=== PATIENT | female | born 1980 | race Caucasian/White ===

== ENCOUNTER 2016-06-05 17:45 | Emergency (ER) | payer OTHER ==
[~2016-06-05] VITALS: Ht 182.9 cm; Wt 98.7 kg
[~2016-06-05 17:45] MED LIST: ALBUAER INH; BISM262S7; IMD/2 PO; MOML PO; ONDA4TAB10 SL
[2016-06-05 17:47] VITALS: TEMP 36.9; Ht 182.9 cm; Wt 98.7 kg
[2016-06-05] MEDS ORDERED: MoRPHine SULFATE 4 MG/ML 1 ML CARP\\VIAL IV STA (18:00)
[2016-06-05] MEDS ORDERED: SODIUM CHLORIDE 0.9% 1000ML 1,000 ML IV STA (18:00)
[2016-06-05] MEDS ORDERED: ONDANSETRON INJ 2 MG/ML 2 ML VIAL IV STA (18:00)
[2016-06-05 18:13] LABS: URINE APPEARANCE CLOUDY (CLEAR); URINE BILIRUBIN NEG (NEG); URINE COLOR DK YELLOW; URINE EPITHELIAL CELL AUTO >30 /lpf (0-5); URINE NITRITE NEG (NEG); URINE SPECIFIC GRAVITY 1.042 (1.000-1.030); UROBILINOGEN NEG (NEG)
[2016-06-05 18:21] LABS: MANUAL MICROSCOPIC REQUIRED? NO; REVIEW REQ? NO
[2016-06-05 18:29] LABS: HEMATOCRIT 44.2 % (37-47); MEAN CORPUSCULAR HEMOGLOBIN 29.5 pg (25-34); MEAN CORPUSCULAR HGB CONC 33.9 g/dl (32-36); MEAN PLATELET VOLUME 10.9 fL (7.4-10.4); PLATELET COUNT 239 K/uL (130-400); RED BLOOD COUNT 5.08 M/uL (4.2-5.4); WHITE BLOOD COUNT 16.34 K/uL (4.8-10.8)
[2016-06-05 18:56] LABS: ALKALINE PHOSPHATASE 72 U/L (45-117); ALT/SGPT 16 U/L (12-78); BLOOD UREA NITROGEN 18 mg/dl (7-18); BUN/CREATININE RATIO 21.2 (10-20); CALCIUM 8.7 mg/dl (8.5-10.1); CHLORIDE 107 mmol/L (98-107); CREATININE 0.83 mg/dl (0.60-1.20)
[2016-06-05 18:57] LABS: CARBON DIOXIDE 23 mmol/L (21-32); GLUCOSE 80 mg/dl (70-99)
[2016-06-05 19:06] LABS: POTASSIUM 3.9 mmol/L (3.5-5.1); SODIUM 142 mmol/L (136-145)
[2016-06-05 19:17] LABS: AST/SGOT 10 U/L (15-37)
[2016-06-05 19:25] LABS: BASO % 0.4 %; BASO ABS # 0.06 K/uL (0-0.2); COMPLETE YES; EOS % 4.2 %; IG% 0.2 %; LYMPH % 36.3 %; LYMPH ABS # 5.93 K/uL (1.2-3.4); MONO % 6.4 %; NEUT % 52.5 %
--- NOTE | 2016-06-05 19:32 | DIAGNOSTIC IMAGING REPORT ---
CT SCAN OF THE ABDOMEN AND PELVIS WITHOUT CONTRAST CLINICAL HISTORY: Left lower quadrant pain and hematuria COMPARISON STUDY: 07/16/2013 TECHNIQUE: CT scan of the abdomen and pelvis was performed from the lung bases to the proximal femurs. Images are reviewed in the axial, sagittal, and coronal planes. IV contrast was not administered for this examination. CT DOSE: 1681.41 mGy.cm FINDINGS: Lower chest: The heart is normal in size and configuration, without pericardial effusion. The lung bases and pleural spaces are clear. Liver: The unenhanced liver is normal in size, contour, and attenuation. There is no intrahepatic biliary ductal dilatation. Gallbladder: Unremarkable. Spleen: Normal in size and attenuation. Pancreas: Unremarkable. Adrenal glands: Unremarkable. Kidneys: No renal, ureteral, or bladder calculi are visualized. Bowel: There are no transition zones indicate bowel obstruction. There is no acute diverticulitis. The appendix appears normal. Peritoneum: There is no intraperitoneal free air or abdominal ascites. Vasculature: The abdominal aorta is normal in course and caliber. Adenopathy: None. Pelvic viscera: There is an indwelling IUD. No abnormal pelvic masses are visualized. Skeletal structures: No destructive osseous lesions are seen. IMPRESSION: 1. No renal, ureteral, or bladder calculi identified 2. No evidence of bowel obstruction. No evidence of free air 3. Normal appendix 4. No evidence of acute diverticulitis. Electronically signed by: Dru Hood M.D. 06/05/2016 7:30 PM Dictated Date/Time: 06/05/2016 7:26 PM
--- NOTE | 2016-06-05 19:59 | EMERGENCY ROOM VISIT NOTE ---
History Report prepared by Sridhar: Екатерина Blue Under the Supervision of: Dr. Jules Ozuna M.D. First contact with patient: 17:52 Chief Complaint: GI ASSESSMENT Stated Complaint: ABD PAIN,BLOOD IN URINE,FEVER,CHILLS Nursing Triage Summary: abd/back pain hematuria denies hx of kidney stones History of Present Illness The patient is a 36 year old female who presents to the Emergency Room with complaints of persistent LLQ abdominal and back pain that started earlier today. She rates her discomfort as a 7/10. She reports both yesterday and today she has felt nauseous, but she has not vomited. She saw blood when she wiped after urinating today, but she is sure if it was hematuria or her menstrual period. She also reports "there was tissue when I wiped, like little pieces of skin". She has an IUD in place and states she does not think she is . She denies any history of kidney stones. She admits to some diarrhea yesterday and today. The patient also reports she felt warm yesterday, and experienced the chills, but when she checked her temperature at home, it was not elevated. Source of History: patient Onset: Earlier today Position: abdomen (LLQ) Symptom Intensity: 7/10 Timing: other (persistent) Associated Symptoms: + chills, + diarrhea, + nausea, + urinary symptoms, No vomiting Review of Systems See HPI for pertinent positives & negatives. A total of 10 systems reviewed and were otherwise negative. Past Medical & Surgical Medical Problems: (1) Adverse reaction to drug (2) Asthma (3) Asthmatic bronchitis (4) Deep venous thrombosis of upper extremity (5) Dental caries (6) Dentalgia (7) Diab Colleen Wo Compl, Type Ii Or Unspec Type, Not Uncntrld (8) Dysphagia (9) Dysphagia (10) Factor V Leiden (11) Fall due to ice or snow (12) Fall due to ice or snow (13) Fam Hx-Chr Resp Cond Nec (14) Fam Hx-Diabetes Mellitus (15) Headache (16) Hypertension Nos (17) Knee pain (18) Pyelonephritis (19) Rib pain on left side (20) Smoker (21) Soft tissue injury of neck (22) Soft tissue injury of neck (23) Tobacco Use Disorder (24) Vaginal delivery Surgical Problems: (1) Hx of tonsillectomy Family History FH: diabetes mellitus FH: heart disease FH: hypertension FH: lung disease Social History Smoking Status: Current Every Day Smoker Alcohol Use: none Drug Use: none Marital Status: in relationship Housing Status: lives with family Occupation Status: employed Current/Historical Medications Scheduled PRN Albuterol (Proventil Hfa), 2 PUFFS INH UD PRN for Shortness of Breath Allergies Coded Allergies: Amoxicillin (Verified Allergy, Severe, ANAPHYLAXIS, 01/05/16) Levofloxacin (Verified Allergy, Severe, Lips swell, 01/05/16) Penicillins (Verified Allergy, Intermediate, lips swell-ANAPHYLAXIS A CHILD, 01/05/16) Ciprofloxacin (Verified Allergy, Mild, RASH, 01/05/16) Quinolones (Verified Allergy, Mild, BODY TURNED RED, 01/05/16) Sulfa Drugs (Verified Allergy, Mild, ITCHY RED PATCHES, 01/05/16) Nitrofurantoin (Verified Allergy, Unknown, eyes swell, 01/05/16) Physical Exam Vital Signs Date Time Temp Pulse Resp B/P Pulse Ox O2 Delivery O2 Flow Rate FiO2 06/05/16 19:04 84 16 118/61 98 Room Air 06/05/16 17:47 36.9 88 16 159/101 98 Room Air Physical Exam Constitutional: Vital signs reviewed. Eyes: Pupils are equal round reactive to light. Conjunctiva are noninjected. ENT: Pharynx is clear without erythema or exudate. Mucous membranes are moist. Neck supple without meningeal signs. Respiratory: Clear to auscultation bilaterally. Breath sounds are equal bilaterally. Cardiovascular: Regular rate and rhythm. No rubs or gallops. GI: Soft, nondistended. LLQ tenderness, no guarding. Bowel sounds are present. Pelvic: Mild blood in vault, no active bleeding. Cervix is closed. No cervical motion tenderness. No adnexal tenderness or fullness. Musculoskeletal: No peripheral edema. No CVA tenderness. Integumentary: No cyanosis. Neurological: The patient is awake and alert. No focal deficits. Psychiatric: Normal affect. Medical Decision & Procedures ER Provider Diagnostic Interpretation: This CT scan was reviewed and interpreted by the radiologist and reviewed by myself. CT SCAN OF THE ABDOMEN AND PELVIS WITHOUT CONTRAST CLINICAL HISTORY: Left lower quadrant pain and hematuria COMPARISON STUDY: 07/16/2013 TECHNIQUE: CT scan of the abdomen and pelvis was performed from the lung bases to the proximal femurs. Images are reviewed in the axial, sagittal, and coronal planes. IV contrast was not administered for this examination. CT DOSE: 1681.41 mGy.cm FINDINGS: Lower chest: The heart is normal in size and configuration, without pericardial effusion. The lung bases and pleural spaces are clear. Liver: The unenhanced liver is normal in size, contour, and attenuation. There is no intrahepatic biliary ductal dilatation. Gallbladder: Unremarkable. Spleen: Normal in size and attenuation. Pancreas: Unremarkable. Adrenal glands: Unremarkable. Kidneys: No renal, ureteral, or bladder calculi are visualized. Bowel: There are no transition zones indicate bowel obstruction. There is no acute diverticulitis. The appendix appears normal. Peritoneum: There is no intraperitoneal free air or abdominal ascites. Vasculature: The abdominal aorta is normal in course and caliber. Adenopathy: None. Pelvic viscera: There is an indwelling IUD. No abnormal pelvic masses are visualized. Skeletal structures: No destructive osseous lesions are seen. IMPRESSION: 1. No renal, ureteral, or bladder calculi identified 2. No evidence of bowel obstruction. No evidence of free air 3. Normal appendix 4. No evidence of acute diverticulitis. Electronically signed by: Dru Hood M.D. 06/05/2016 7:30 PM Laboratory Results 06/05/16 18:15 Red Blood Count 5.08, Mean Corpuscular Volume 87.0, Mean Corpuscular Hemoglobin 29.5, Mean Corpuscular Hemoglobin Concent 33.9, Mean Platelet Volume 10.9, Neutrophils (%) (Auto) 52.5, Lymphocytes (%) (Auto) 36.3, Monocytes (%) (Auto) 6.4, Eosinophils (%) (Auto) 4.2, Basophils (%) (Auto) 0.4, Neutrophils # (Auto) 8.57, Lymphocytes # (Auto) 5.93, Monocytes # (Auto) 1.05, Eosinophils # (Auto) 0.69, Basophils # (Auto) 0.06 06/05/16 18:15 Test 06/05/16 18:00 06/05/16 18:15 06/05/16 19:45 Urine Color DK YELLOW Urine Appearance CLOUDY (CLEAR) Urine pH 5.0 (4.5-7.5) Urine Specific [place] 1.042 (1.000-1.030) Urine Protein NEG (NEG) Urine Glucose (UA) NEG (NEG) Urine Ketones NEG (NEG) Urine Occult Blood 3+ (NEG) Urine Nitrite NEG (NEG) Urine Bilirubin NEG (NEG) Urine Urobilinogen NEG (NEG) Urine Leukocyte Esterase NEG (NEG) Urine WBC (Auto) 1-5 /hpf (0-5) Urine RBC (Auto) >30 /hpf (0-4) Urine Hyaline Casts (Auto) 1-5 /lpf (0-5) Urine Epithelial Cells (Auto) >30 /lpf (0-5) Urine Bacteria (Auto) NEG (NEG) Urine Test NEG (NEG) White Blood Count 16.34 K/uL (4.8-10.8) Red Blood Count 5.08 M/uL (4.2-5.4) Hemoglobin 15.0 g/dL (12.0-16.0) Hematocrit 44.2 % (37-47) Mean Corpuscular Volume 87.0 fL (80-100) Mean Corpuscular Hemoglobin 29.5 pg (25-34) Mean Corpuscular Hemoglobin Concent 33.9 g/dl (32-36) Platelet Count 239 K/uL (130-400) Mean Platelet Volume 10.9 fL (7.4-10.4) Neutrophils (%) (Auto) 52.5 % Lymphocytes (%) (Auto) 36.3 % Monocytes (%) (Auto) 6.4 % Eosinophils (%) (Auto) 4.2 % Basophils (%) (Auto) 0.4 % Neutrophils # (Auto) 8.57 K/uL (1.4-6.5) Lymphocytes # (Auto) 5.93 K/uL (1.2-3.4) Monocytes # (Auto) 1.05 K/uL (0.11-0.59) Eosinophils # (Auto) 0.69 K/uL (0-0.5) Basophils # (Auto) 0.06 K/uL (0-0.2) RDW Standard Deviation 42.5 fL (36.4-46.3) RDW Coefficient of Variation 13.2 % (11.5-14.5) Immature Granulocyte % (Auto) 0.2 % Immature Granulocyte # (Auto) 0.04 K/uL (0.00-0.02) Red Blood Cell Morphology Unremarkable Anion Gap 13.0 mmol/L (3-11) Est Creatinine Clear Calc Drug Dose 125.7 ml/min Estimated GFR () 106.6 Estimated GFR (Non- 92.0 BUN/Creatinine Ratio 21.2 (10-20) Calcium Level 8.7 mg/dl (8.5-10.1) Total Bilirubin 0.2 mg/dl (0.2-1) Direct Bilirubin < 0.1 mg/dl (0-0.2) Aspartate Amino Transf (AST/SGOT) 10 U/L (15-37) Alanine Aminotransferase (ALT/SGPT) 16 U/L (12-78) Alkaline Phosphatase 72 U/L (45-117) Total Protein 7.1 gm/dl (6.4-8.2) Albumin 4.0 gm/dl (3.4-5.0) Lipase 176 U/L (73-393) Laboratory results as reviewed by me. Medications Administered Medications (Trade) Dose Ordered Sig/Lyssa Route Start Time Stop Time Status Last Admin Dose Admin Morphine Sulfate (MoRPHine SULFATE INJ) 4 mg ONE STAT IV 06/05/16 18:00 06/05/16 18:01 DC 06/05/16 19:06 4 MG Ondansetron HCl 4 mg 4 mg NOW STAT IV 06/05/16 18:00 06/05/16 18:01 DC 06/05/16 19:05 4 MG Sodium Chloride (Nss 1000ml) 1,000 ml @ 999 mls/hr Q1H1M STAT IV 06/05/16 18:00 06/05/16 19:00 DC 06/05/16 18:00 999 MLS/HR ED Course 1753: The patient was evaluated in room A4. A complete history and physical exam was performed. 1800: NSS 1000 ml @ 999 mls/hr IV, Zofran 4 mg IV, Morphine Sulfate 4 mg IV. 1936: I reevaluated the patient. She states she is feeling better. I performed a pelvic exam. I discussed her test results and discharge instructions and she verbalized complete understanding and agreement. Medical Decision This is a 36-year-old female presents with left-sided abdominal pain, diarrhea and hematuria. Differential diagnosis includes kidney stone, UTI, pyelonephritis, diverticulitis, colitis. I did perform a limited focused review of portions of the patient's old chart on the electronic medical record. The patient has had no recent pertinent visits to this hospital. I did evaluate the patient as noted above. IV access was established. I did treat patient with IV morphine and Zofran. She was also given normal saline IV. I did order and personally review the patient's urinalysis as described above. She has hematuria but no signs of infection. I did order and review the patient's blood work as noted in the electronic medical record. Her white blood cell count is elevated. I did order a CT of the abdomen and pelvis. I did review the images myself as well as the radiology report as described above. The CT scan does not show any acute process in the abdomen and pelvis. There is no signs of diverticulitis or kidney stone. I did reevaluate the patient. She is feeling better at this time. She has very mild tenderness on the left side. It is unclear what is causing her pain. I did do a pelvic examination which was fairly unremarkable other than some residual menstrual blood which may have caused her hematuria. There is no evidence of PID or adnexal fullness or tenderness. The patient was advised to follow up within 48 hours with her physician for reevaluation. She was given return instructions as outlined below. She was advised to only use Tylenol or Motrin for pain and to return should she have worsening symptoms. She was discharged in good condition. Impression Primary Impression: Abdominal pain, left lower quadrant Additional Impression: Diarrhea Scribe Attestation The scribe's documentation has been prepared under my direct and personally reviewed by me in its entirety. I confirm that the note above accurately reflects all work, treatment, procedures, and medical decision making performed by me. Departure Information Dispostion Home / Self-Care Referrals Martin Rizzo M.D. (PCP) Patient Instructions ED Abd Pain Unkn Cause Fem, My [facility] Additional Instructions You have been examined and treated today on an emergency basis only. This is not a substitute for, or an effort to provide, complete comprehensive medical care. It is impossible to recognize and treat all injuries or illnesses in a single emergency department visit. It is therefore important that you follow up closely with your physician within 48 hours for reevaluation. Call as soon as possible for an appointment. Return for worsening symptoms or if you develop fever, vomiting, or any other concerning symptoms. Problem Qualifiers Additional Impression: Diarrhea Diarrhea type: unspecified type Qualified Codes: R19.7 - Diarrhea, unspecified
[2016-06-05 20:09] VITALS: BP 133/93; PULSE 77; O2SAT 98
--- NOTE | 2016-06-08 12:32 | Pharmacy Progress Note ---
ED Pharmacist Culture FollowUp Date of Service: Jun 08, 2016. Gardnerella growing from patient's genital culture. No clue cells seen. Pelvic exam unremarkable other than residual menstrual blood. Not likely infectious. No intervention required. Case discussed with Dr. Zeng.
[2016-06-08 13:42] LABS: CHLAMYDIA TRACH RNA*** NOT DETECTED (NOT DETECTED); GC (NEIS GONORRHOEAE)RNA** NOT DETECTED (NOT DETECTED)
[2017-01-02] MEDS ORDERED: VNTHFA/IN INH (10:23)
== END 2016-06-05 20:15 | disposition home or self-care (01) ==
LOC: C.EDB 17:46 → C.EDA 20:15
DX: R10.32 Left lower quadrant pain (principal); R19.7 Diarrhea, unspecified; J45.909 Unspecified asthma, uncomplicated; Z86.718 Personal history of other venous thrombosis and embolism; E11.9 Type 2 diabetes mellitus without complications; D68.2 Hereditary deficiency of other clotting factors; I10 Essential (primary) hypertension; Z83.3 Family history of diabetes mellitus; Z83.6 Family history of other diseases of the respiratory system; Z82.49 Family history of ischemic heart disease and other diseases of the circulatory system; F17.210 Nicotine dependence, cigarettes, uncomplicated

== ENCOUNTER → 2016-06-07 | Outpatient (CLI) | payer OTHER ==
[~2016-06-07] MED LIST changes: -BISM262S7; -IMD/2 PO; -MOML PO; -ONDA4TAB10 SL; +VNTHFA/IN INH
[2016-06-11 13:12] LABS: O&P SOURCE OTHER-STOOL
== END | disposition home or self-care (01) ==
LOC: C.LABSPEC 17:38
PROVIDERS: ATTEND Nurse Practitioner
DX: R19.7 Diarrhea, unspecified (principal)

== ENCOUNTER → 2016-06-07 | Outpatient (CLI) | payer OTHER ==
[2016-06-07 17:33] LABS: BASO % 0.4 %; BASO ABS # 0.06 K/uL (0-0.2); COMPLETE YES; EOS % 5.4 %; HEMATOCRIT 44.6 % (37-47); IG% 0.2 %; LYMPH % 34.5 %; LYMPH ABS # 4.72 K/uL (1.2-3.4); MEAN CELL VOLUME 89.7 fL (80-100); MEAN CORPUSCULAR HEMOGLOBIN 30.8 pg (25-34); MEAN CORPUSCULAR HGB CONC 34.3 g/dl (32-36); MEAN PLATELET VOLUME 11.8 fL (7.4-10.4); MONO % 5.8 %; NEUT % 53.7 %; PLATELET COUNT 238 K/uL (130-400); RED BLOOD COUNT 4.97 M/uL (4.2-5.4); WHITE BLOOD COUNT 13.68 K/uL (4.8-10.8)
[2016-06-07 18:16] LABS: BLOOD UREA NITROGEN 17 mg/dl (7-18); BUN/CREATININE RATIO 23.1 (10-20); C-REACTIVE PROTEIN < 0.29 mg/dl (0-0.29); CALCIUM 9.1 mg/dl (8.5-10.1); CARBON DIOXIDE 27 mmol/L (21-32); CHLORIDE 107 mmol/L (98-107); CREATININE 0.75 mg/dl (0.60-1.20); GLUCOSE 75 mg/dl (70-99); POTASSIUM 4.1 mmol/L (3.5-5.1); SODIUM 141 mmol/L (136-145)
[2016-06-07 18:18] LABS: URINE APPEARANCE TURBID (CLEAR); URINE BILIRUBIN NEG (NEG); URINE COLOR DK YELLOW; URINE EPITHELIAL CELL AUTO >30 /lpf (0-5); URINE NITRITE NEG (NEG); URINE SPECIFIC GRAVITY 1.033 (1.000-1.030); UROBILINOGEN NEG (NEG); ZZUR CULT IF INDIC CLEAN CATCH NO
[2016-06-07 18:21] LABS: MANUAL MICROSCOPIC REQUIRED? NO; REVIEW REQ? YES
== END | disposition home or self-care (01) ==
LOC: C.LABBFT 12:15
PROVIDERS: ATTEND Nurse Practitioner
DX: R10.32 Left lower quadrant pain (principal); R19.7 Diarrhea, unspecified

== ENCOUNTER → 2017-04-12 | Outpatient (CLI) | payer OTHER ==
[~2017-04-12] MED LIST changes: -ALBUAER INH
== END | disposition home or self-care (01) ==
LOC: C.LABBFT 10:42
PROVIDERS: ATTEND Internal Medicine
DX: M54.9 Dorsalgia, unspecified (principal)

== ENCOUNTER 2017-09-27 10:31 | Observation (INO) | payer OTHER ==
[2017-09-27] VITALS (7 sets, daily range): BP systolic 84–123; BP diastolic 57–77; PULSE 60–72; TEMP 36.2–37; O2SAT 95–100; Ht 182.9 cm; Wt 94.7 kg
[~2017-09-27] VITALS: Ht 182.9 cm; Wt 94.7 kg
[~2017-09-27 10:31] MED LIST changes: +ACET-1256 PO; +IBUP-1050 PO
[2017-09-27] MEDS ORDERED: ONDANSETRON INJ 2 MG/ML 2 ML VIAL IV STA (10:59)
[2017-09-27] MEDS ORDERED: SODIUM CHLORIDE 0.9% 1000ML 1,000 ML IV STA (10:59)
[2017-09-27] MEDS ORDERED: KETOROLAC TROMETHAMINE 30 MG/ML VIAL IV STA (10:59)
[2017-09-27] MEDS ORDERED: MoRPHine SULFATE 4 MG/ML 1 ML CARP\\VIAL IV PRN (11:00)
[2017-09-27 11:10] LABS: BASO % 0.2 %; BASO ABS # 0.04 K/uL (0-0.2); EOS % 0.8 %; EOS ABS # 0.14 K/uL (0-0.5); HEMATOCRIT 43.1 % (37-47); HEMOGLOBIN 14.8 g/dL (12.0-16.0); IG# 0.04 K/uL (0.00-0.02); LYMPH % 15.8 %; LYMPH ABS # 2.83 K/uL (1.2-3.4); MEAN CELL VOLUME 90.2 fL (80-100); MEAN CORPUSCULAR HGB CONC 34.3 g/dl (32-36); MEAN PLATELET VOLUME 10.8 fL (7.4-10.4); MONO % 5.5 %; MONO ABS # 0.98 K/uL (0.11-0.59); NEUT % 77.5 %; PLATELET COUNT 240 K/uL (130-400); RED CELL DISTRIBUTION WIDTH CV 12.9 % (11.5-14.5); RED CELL DISTRIBUTION WIDTH SD 42.3 fL (36.4-46.3); WHITE BLOOD COUNT 17.93 K/uL (4.8-10.8)
[2017-09-27 11:21] LABS: ALBUMIN 3.6 gm/dl (3.4-5.0); CALCIUM 8.7 mg/dl (8.5-10.1); CREATININE 0.83 mg/dl (0.60-1.20); POTASSIUM 3.6 mmol/L (3.5-5.1); TOTAL PROTEIN 6.7 gm/dl (6.4-8.2)
--- NOTE | 2017-09-27 12:12 | DIAGNOSTIC IMAGING REPORT ---
ABDOMEN 2VIEW W/PA CHEST RTN CLINICAL HISTORY: Abdominal pain COMPARISON STUDY: 01/05/2016 FINDINGS: The erect chest reveals no free air. There is no focal pulmonary consolidation. Erect and supine views the abdomen reveal an IUD. There is a borderline dilated left mid abdominal small bowel loop. There is no current evidence of significant bowel obstruction.. IMPRESSION: Nonspecific bowel gas pattern with a borderline dilated left mid abdominal small bowel loop. This could indicate a mild focal ileus. There is no current evidence of significant bowel obstruction. There is no free air. Electronically signed by: Dru Hood M.D. 09/27/2017 12:11 PM Dictated Date/Time: 09/27/2017 12:09 PM
[2017-09-27] MEDS ORDERED: OPTIRAY 320 IV PRN (12:45)
--- NOTE | 2017-09-27 13:34 | DIAGNOSTIC IMAGING REPORT ---
CT SCAN OF THE ABDOMEN AND PELVIS WITH IV CONTRAST CLINICAL HISTORY: Right lower quadrant abdominal pain. COMPARISON STUDY: Abdominal CT dated 06/05/2016. TECHNIQUE: Following the IV administration of 119 cc of Optiray 320, CT scan of the abdomen and pelvis is performed from the lung bases to the proximal femora. Images are reviewed in the axial, sagittal, and coronal planes. IV contrast was administered without complication. A dose lowering technique was utilized adhering to the principles of ALARA. CT DOSE: 537.72 mGy.cm FINDINGS: Lung bases: The heart is normal in size and without pericardial effusion. The lung bases are clear. Liver: The contrast-enhanced liver is normal in size, contour, and attenuation. There is no intrahepatic biliary ductal dilatation. The hepatic veins and portal veins are patent. Gallbladder: Unremarkable. Spleen: Normal in size and attenuation. Pancreas: Unremarkable. Adrenal glands: Unremarkable. Kidneys: The contrast enhanced kidneys are normal in size and without hydronephrosis. The kidneys enhance symmetrically. Abdominal vasculature: The abdominal aorta is normal in course and caliber. Bowel: There is no bowel obstruction. The appendix is distended and fluid-filled, measuring up to 1.4 cm in diameter as seen on image #310. The appendiceal wall is thickened and hyperemic and there is appendiceal inflammatory stranding. Findings are consistent acute appendicitis. No abscess is seen. Peritoneum: There is no intraperitoneal free air or abdominal ascites. Lymphadenopathy: None. Pelvic viscera: The bladder is normal as visualized. The uterus is normal in appearance noting an intrauterine device in place. The ovaries are normal as imaged. Trace free fluid is noted in the cul-de-sac. Skeletal structures: No lytic or blastic lesions are seen. IMPRESSION: 1. Findings are consistent with acute appendicitis. 2. There is no evidence of abscess or perforation. 3. Trace free fluid in the cul-de-sac is likely within physiologic limits. Electronically signed by: Topher Kitchen M.D. 09/27/2017 1:33 PM Dictated Date/Time: 09/27/2017 1:21 PM
--- NOTE | 2017-09-27 14:21 | EMERGENCY ROOM VISIT NOTE ---
History Report prepared by Sridhar: Mary Lopez Under the Supervision of: Dr. Topher Dong M.D. First contact with patient: 10:57 Chief Complaint: ABDOMINAL PAIN Stated Complaint: STOMACH PAIN, NAUSEA Nursing Triage Summary: pt reports waking from sleep with sharp mid abd pain since 0700. Associated nausea. denies v/d. reports emesis on Tuesday. Hx of IBS History of Present Illness The patient is a 37 year old female who presents to the Emergency Room with complaints of waxing and waning abdominal pain that onset 4 hours ago. The patient notes that she felt like she had the stomach flu on Tuesday and still felt sick on Tuesday morning. She states that she was vomiting on Tuesday and did not have diarrhea. She notes that she felt better by lunch time on Tuesday and still felt okay when she went to bed last night. The patient states that this pain is localized to the middle of her abdomen above her belly button that extends across her abdomen. She describes this pain as "unrelenting" and noted that the pain made her cry. She describes this pain as waxing and waning that goes between a 7/10 and 9/10 in severity. The patient complains of back pain, nausea, and dry heaving. The patient denies diarrhea and urinary symptoms. The patient denies eating anything new or any concerns. The patient notes that she has not eaten or had anything to drink today. The patient states that she had a kidney infection and that this pain is similar, but not as severe as the infection. The patient also notes that she has a Mirena implant. She denies ever having surgery on her abdomen or using blood thinners. Source of History: patient Onset: 4 hours ago Position: abdomen Symptom Intensity: unrelenting Timing: waxes/wanes Associated Symptoms: + nausea, + back pain, No diarrhea, No urinary symptoms Note: The patient complains of dry heaving, and not being able to eat or drink. Review of Systems See HPI for pertinent positives & negatives. A total of 10 systems reviewed and were otherwise negative. Past Medical & Surgical Medical Problems: (1) Acute appendicitis (2) Adverse reaction to drug (3) Asthma (4) Asthmatic bronchitis (5) Deep venous thrombosis of upper extremity (6) Dental caries (7) Dentalgia (8) Diab Colleen Wo Compl, Type Ii Or Unspec Type, Not Uncntrld (9) Dysphagia (10) Dysphagia (11) Factor V Leiden (12) Fall due to ice or snow (13) Fall due to ice or snow (14) Fam Hx-Chr Resp Cond Nec (15) Fam Hx-Diabetes Mellitus (16) Headache (17) Hypertension Nos (18) Knee pain (19) Pyelonephritis (20) Rib pain on left side (21) Smoker (22) Soft tissue injury of neck (23) Soft tissue injury of neck (24) Tobacco Use Disorder (25) Vaginal delivery Surgical Problems: (1) Hx of tonsillectomy Family History FH: diabetes mellitus FH: heart disease FH: hypertension FH: lung disease Social History Smoking Status: Current Every Day Smoker Alcohol Use: none Drug Use: none Marital Status: in relationship Housing Status: lives with family Occupation Status: employed Current/Historical Medications Scheduled PRN Acetaminophen (Tylenol), 1,000 MG PO Q6 PRN for Pain Albuterol Hfa (Ventolin Hfa), 2 PUFFS INH QID PRN for SOB/Wheezing Ibuprofen (Advil), 400 MG PO Q6 PRN for Pain Allergies Coded Allergies: Amoxicillin (Verified Allergy, Severe, ANAPHYLAXIS, 09/27/17) Levofloxacin (Verified Allergy, Severe, Lips swell, 09/27/17) Penicillins (Verified Allergy, Intermediate, lips swell-ANAPHYLAXIS A CHILD, 09/27/17) Ciprofloxacin (Verified Allergy, Mild, RASH, 09/27/17) Quinolones (Verified Allergy, Mild, BODY TURNED RED, 09/27/17) Sulfa Drugs (Verified Allergy, Mild, ITCHY RED PATCHES, 09/27/17) Nitrofurantoin (Verified Allergy, Unknown, eyes swell, 09/27/17) Physical Exam Vital Signs Date Time Temp Pulse Resp B/P (MAP) Pulse Ox O2 Delivery O2 Flow Rate FiO2 09/27/17 17:05 59 18 124/80 100 Room Air 09/27/17 16:55 36.5 58 16 115/84 100 Room Air 09/27/17 16:45 61 16 102/87 100 Oxymask 10 09/27/17 16:35 61 18 122/95 100 Oxymask 10 09/27/17 16:26 36.1 68 17 120/85 100 Oxymask 10 09/27/17 14:49 36.8 70 16 126/77 (93) 100 Room Air 09/27/17 14:30 70 18 135/77 100 Room Air 09/27/17 12:30 82 16 114/75 98 Room Air 09/27/17 10:35 36.7 92 18 138/74 100 Room Air Physical Exam GENERAL: Patient is in mild distress secondary to pain. HEENT: No acute trauma, normocephalic atraumatic, mucous membranes moist, no nasal congestion, no scleral icterus. NECK: No stridor, no adenopathy, no meningismus, trachea is midline. LUNGS: Clear to auscultation bilaterally, no wheeze, no rhonchi, breath sounds equal. HEART: Without murmurs gallops or rubs, regular rate and rhythm. ABDOMEN: Soft, bowel sounds positive, no hernias, no peritonitis. Tender to the epigastric area. EXTREMITIES: No cyanosis or edema, full range of motion of all the joints without pain or difficulty, no signs for acute trauma. NEUROLOGIC: Oriented x 3, no acute motor or sensory deficits, no focal weakness. SKIN: No rash, no jaundice, no diaphoresis. Medical Decision & Procedures ER Provider Diagnostic Interpretation: Radiology results as stated below per my review and radiologist interpretation: ABDOMEN 2VIEW W/PA CHEST RTN CLINICAL HISTORY: Abdominal pain COMPARISON STUDY: 01/05/2016 FINDINGS: The erect chest reveals no free air. There is no focal pulmonary consolidation. Erect and supine views the abdomen reveal an IUD. There is a borderline dilated left mid abdominal small bowel loop. There is no current evidence of significant bowel obstruction.. IMPRESSION: Nonspecific bowel gas pattern with a borderline dilated left mid abdominal small bowel loop. This could indicate a mild focal ileus. There is no current evidence of significant bowel obstruction. There is no free air. Electronically signed by: Dru Hood M.D. 09/27/2017 12:11 PM Dictated Date/Time: 09/27/2017 12:[address] SCAN OF THE ABDOMEN AND PELVIS WITH IV CONTRAST CLINICAL HISTORY: Right lower quadrant abdominal pain. COMPARISON STUDY: Abdominal CT dated 06/05/2016. TECHNIQUE: Following the IV administration of 119 cc of Optiray 320, CT scan of the abdomen and pelvis is performed from the lung bases to the proximal femora. Images are reviewed in the axial, sagittal, and coronal planes. IV contrast was administered without complication. A dose lowering technique was utilized adhering to the principles of ALARA. CT DOSE: 537.72 mGy.cm FINDINGS: Lung bases: The heart is normal in size and without pericardial effusion. The lung bases are clear. Liver: The contrast-enhanced liver is normal in size, contour, and attenuation. There is no intrahepatic biliary ductal dilatation. The hepatic veins and portal veins are patent. Gallbladder: Unremarkable. Spleen: Normal in size and attenuation. Pancreas: Unremarkable. Adrenal glands: Unremarkable. Kidneys: The contrast enhanced kidneys are normal in size and without hydronephrosis. The kidneys enhance symmetrically. Abdominal vasculature: The abdominal aorta is normal in course and caliber. Bowel: There is no bowel obstruction. The appendix is distended and fluid-filled, measuring up to 1.4 cm in diameter as seen on image #310. The appendiceal wall is thickened and hyperemic and there is appendiceal inflammatory stranding. Findings are consistent acute appendicitis. No abscess is seen. Peritoneum: There is no intraperitoneal free air or abdominal ascites. Lymphadenopathy: None. Pelvic viscera: The bladder is normal as visualized. The uterus is normal in appearance noting an intrauterine device in place. The ovaries are normal as imaged. Trace free fluid is noted in the cul-de-sac. Skeletal structures: No lytic or blastic lesions are seen. IMPRESSION: 1. Findings are consistent with acute appendicitis. 2. There is no evidence of abscess or perforation. 3. Trace free fluid in the cul-de-sac is likely within physiologic limits. Electronically signed by: Topher Kitchen M.D. 09/27/2017 1:33 PM Dictated Date/Time: 09/27/2017 1:21 PM Laboratory Results 09/27/17 10:55 Red Blood Count 4.78, Mean Corpuscular Volume 90.2, Mean Corpuscular Hemoglobin 31.0, Mean Corpuscular Hemoglobin Concent 34.3, Mean Platelet Volume 10.8, Neutrophils (%) (Auto) 77.5, Lymphocytes (%) (Auto) 15.8, Monocytes (%) (Auto) 5.5, Eosinophils (%) (Auto) 0.8, Basophils (%) (Auto) 0.2, Neutrophils # (Auto) 13.90, Lymphocytes # (Auto) 2.83, Monocytes # (Auto) 0.98, Eosinophils # (Auto) 0.14, Basophils # (Auto) 0.04 09/27/17 10:55 Test 09/27/17 10:55 09/27/17 12:40 09/27/17 16:38 White Blood Count 17.93 K/uL (4.8-10.8) Red Blood Count 4.78 M/uL (4.2-5.4) Hemoglobin 14.8 g/dL (12.0-16.0) Hematocrit 43.1 % (37-47) Mean Corpuscular Volume 90.2 fL (80-100) Mean Corpuscular Hemoglobin 31.0 pg (25-34) Mean Corpuscular Hemoglobin Concent 34.3 g/dl (32-36) Platelet Count 240 K/uL (130-400) Mean Platelet Volume 10.8 fL (7.4-10.4) Neutrophils (%) (Auto) 77.5 % Lymphocytes (%) (Auto) 15.8 % Monocytes (%) (Auto) 5.5 % Eosinophils (%) (Auto) 0.8 % Basophils (%) (Auto) 0.2 % Neutrophils # (Auto) 13.90 K/uL (1.4-6.5) Lymphocytes # (Auto) 2.83 K/uL (1.2-3.4) Monocytes # (Auto) 0.98 K/uL (0.11-0.59) Eosinophils # (Auto) 0.14 K/uL (0-0.5) Basophils # (Auto) 0.04 K/uL (0-0.2) RDW Standard Deviation 42.3 fL (36.4-46.3) RDW Coefficient of Variation 12.9 % (11.5-14.5) Immature Granulocyte % (Auto) 0.2 % Immature Granulocyte # (Auto) 0.04 K/uL (0.00-0.02) Prothrombin Time 10.7 SECONDS (9.0-12.0) Prothromb Time International Ratio 1.0 (0.9-1.1) Anion Gap 9.0 mmol/L (3-11) Est Creatinine Clear Calc Drug Dose 122.1 ml/min Estimated GFR () 105.9 Estimated GFR (Non- 91.4 BUN/Creatinine Ratio 9.3 (10-20) Calcium Level 8.7 mg/dl (8.5-10.1) Total Bilirubin 0.8 mg/dl (0.2-1) Aspartate Amino Transf (AST/SGOT) 13 U/L (15-37) Alanine Aminotransferase (ALT/SGPT) 20 U/L (12-78) Alkaline Phosphatase 65 U/L (45-117) Total Protein 6.7 gm/dl (6.4-8.2) Albumin 3.6 gm/dl (3.4-5.0) Globulin 3.1 gm/dl (2.5-4.0) Albumin/Globulin Ratio 1.1 (0.9-2) Lipase 61 U/L (73-393) Human Chorionic Gonadotropin, Qual NEG (NEG) Urine Color YELLOW Urine Appearance CLOUDY (CLEAR) Urine pH >= 9.0 (4.5-7.5) Urine Specific [place] 1.020 (1.000-1.030) Urine Protein NEG (NEG) Urine Glucose (UA) NEG (NEG) Urine Ketones NEG (NEG) Urine Occult Blood NEG (NEG) Urine Nitrite NEG (NEG) Urine Bilirubin NEG (NEG) Urine Urobilinogen NEG (NEG) Urine Leukocyte Esterase NEG (NEG) Urine WBC (Auto) 1-5 /hpf (0-5) Urine RBC (Auto) 0-4 /hpf (0-4) Urine Hyaline Casts (Auto) 1-5 /lpf (0-5) Urine Epithelial Cells (Auto) >30 /lpf (0-5) Urine Bacteria (Auto) 2+ (NEG) Bedside Glucose 82 mg/dl (70-90) Laboratory results reviewed by me. Medications Administered Medications (Trade) Dose Ordered Sig/Lyssa Route Start Time Stop Time Status Last Admin Dose Admin Ondansetron HCl (Zofran Inj) 4 mg NOW STAT IV 09/27/17 10:59 09/27/17 11:02 DC 09/27/17 11:09 4 MG Sodium Chloride 1,000 ml @ 999 mls/hr Q1H1M STAT IV 09/27/17 10:59 09/27/17 11:59 DC 09/27/17 10:59 999 MLS/HR Ketorolac Tromethamine (Toradol Inj) 15 mg NOW STAT IV 09/27/17 10:59 09/27/17 11:02 DC 09/27/17 11:09 15 MG Morphine Sulfate (MoRPHine SULFATE INJ) 4 mg NOW PRN IV 09/27/17 11:00 10/11/17 10:59 09/27/17 11:09 4 MG Bupivacaine HCl (Marcaine 0.5% Pf Inj) 20 ml STK-MED ONCE .ROUTE 09/27/17 15:01 09/27/17 15:02 DC 09/27/17 15:27 20 ML Lidocaine HCl (Xylocaine 1% Inj (Local)) 20 ml STK-MED ONCE .ROUTE 09/27/17 15:01 09/27/17 15:02 DC 09/27/17 15:27 20 ML ED Course 1057: The patient was evaluated in room C4. A complete history and physical exam was performed. 1059: Ordered Toradol Inj 15 mg IV, Sodium Chloride 1000 ml @ 999 mls/hr IV, Zofran Inj 4 mg IV. 1000: Ordered Morphine Sulfate 4 mg IV. 1230: I reevaluated the patient. She is feeling better. She is more tender in the right abdomen. I would marty to make sure she doesn't have appendicitis. 1341: [facility] The patient will be evaluated for further management. Medical Decision Differential diagnoses include: appendicitis, diverticulitis, UTI, ileus, bowel obstruction, dehydration, gastritis, pancreatitis, food born illness, and viral illness. There is a moderate leukocytosis at 17,000, this is consistent with infection, no concerning anemia. No significant electrolyte abnormality, kidney failure, hepatitis or pancreatitis. Urinalysis does not show infection. Obstruction series showed no bowel obstruction or pneumonia. testing was negative. Abdominal and pelvis CT does show acute appendicitis. The patient presents initially complaining of epigastric abdominal pain. She received IV morphine, IV Toradol, IV saline and IV Zofran, she felt improved after being medicated. On repeat exam, she was tender in the right mid abdomen. Because of the right sided tenderness on re-exam, a CT was done, this showed acute appendicitis, I spoke to the patient and case management. The on-call surgeon was consulted. Medication Reconcilliation Current Medication List: was personally reviewed by me Blood Pressure Screening Patient's blood pressure: Normal blood pressure Consults Time Called: 1339 [facility] Returned Call: 1341 Discussed the patient's case with Raegan Updyke- PAC General surgery. The patient will be evaluated for further management. Impression Primary Impression: Appendicitis Additional Impression: Nausea Scribe Attestation The scribe's documentation has been prepared under my direction and personally reviewed by me in its entirety. I confirm that the note above accurately reflects all work, treatment, procedures, and medical decision making performed by me. Departure Information Dispostion Being Evaluated By Hospitalist Referrals Martin Rizzo M.D. (PCP) Forms Call Back Authorization, HOME CARE DOCUMENTATION FORM, IMPORTANT VISIT INFORMATION Patient Instructions My [facility] Problem Qualifiers
--- NOTE | 2017-09-27 14:26 | History and Physical ---
History & Physical Date & Time of Service: Sep 27, 2017 at 14:09 Chief Complaint: Stomach Pain, Nausea Primary Care Physician: Martin Rizzo M.D. History of Present Illness Source: patient Kristi is a 37 year-old female with history of asthma and factor V Leiden deficiency who presented to emergency room this morning with complaint of severe abdominal pain , mid abdomen just above umbilicus with prominence on the right side with associated nausea and low appetite over the weekend. She states she had nausea and some vomiting over the weekend and then felt slightly better yesterday in which she was able to go to work but still did not feel completely better. States she woke up this morning with severe abdominal pain, the worst pain she has ever had and thought maybe she was having a kidney infection. Associated chills today, no known fever or sweats. Denies chest pain, shortness of breath, difficulty breathing, change in bowel habits, diarrhea, blood in stools, or black/tarry stools. She has history of a DVT in her upper extremity following IV placement. Also had miscarriage in which she was told may have been due to her Factor V Leiden deficiency. No history of pulmonary embolism. She was put on Lovenox after Upper extremity DVT and then warfarin an was placed on Lovenox throughout her . Not on exterminator helper anticoagulation. ER work-up included labs which showed leukocytosis of 17K. CT scan of abdomen and pelvis showing dilated appendix at 1.4 cm with periappendiceal inflammation but no evidence of perforation or abscess. She was given Morphine which has helped her pain significantly. She states before she was unable to get into a comfortable position. Past Medical/Surgical History Past Medical History: 1. Asthma 2. DVT upper extremity 3. Factor V Leiden 4. Dentalgia Surgical Problems: (1) Hx of tonsillectomy Family History FH: diabetes mellitus FH: heart disease FH: hypertension FH: lung disease Social History Smoking Status: Current Every Day Smoker Drug Use: none Marital Status: in relationship Housing status: lives with family Occupational Status: employed Immunizations History of Influenza Vaccine: Unknown History of Tetanus Vaccine?: Unknown Allergies Coded Allergies: Amoxicillin (Verified Allergy, Severe, ANAPHYLAXIS, 09/27/17) Levofloxacin (Verified Allergy, Severe, Lips swell, 09/27/17) Penicillins (Verified Allergy, Intermediate, lips swell-ANAPHYLAXIS A CHILD, 09/27/17) Ciprofloxacin (Verified Allergy, Mild, RASH, 09/27/17) Quinolones (Verified Allergy, Mild, BODY TURNED RED, 09/27/17) Sulfa Drugs (Verified Allergy, Mild, ITCHY RED PATCHES, 09/27/17) Nitrofurantoin (Verified Allergy, Unknown, eyes swell, 09/27/17) Home Medications Scheduled PRN Acetaminophen (Tylenol), 1,000 MG PO Q6 PRN for Pain Albuterol Hfa (Ventolin Hfa), 2 PUFFS INH QID PRN for SOB/Wheezing Ibuprofen (Advil), 400 MG PO Q6 PRN for Pain Review of Systems Constitutional: + chills, No fever, No sweats Respiratory: + wheezing (chronic, no change from baseline), No cough, No shortness of breath Cardiovascular: No chest pain Abdomen: + pain, + nausea, + vomiting, + constipation, No diarrhea, No GI bleeding Hematologic / Lymphatic: + clotting problems (Factor V Leiden), No abnormal bleeding/bruising Integumentary: No rash Physical Exam Vital Signs Date Time Temp Pulse Resp B/P (MAP) Pulse Ox O2 Delivery O2 Flow Rate FiO2 09/27/17 12:30 82 16 114/75 98 Room Air 09/27/17 10:35 36.7 92 18 138/74 100 Room Air General Appearance: WD/WN, no apparent distress Head: normocephalic, atraumatic Eyes: sclerae normal ENT: hearing grossly normal Neck: trachea midline Respiratory/Chest: lungs clear, normal breath sounds, no respiratory distress, no accessory muscle use Cardiovascular: regular rate, rhythm, no murmur Abdomen/GI: soft, no organomegaly, no pulsatile mass, + tenderness (RLQ and mid right abdomen on mild palpation with guarding an rebound, no peritonitis) Neurologic/Psych: alert, normal mood/affect, oriented x 3 Skin: normal color, warm/dry, no rash Diagnostics Laboratory Results Results Past 24 Hours Test 09/27/17 10:55 09/27/17 12:40 Range/Units White Blood Count 17.93 4.8-10.8 K/uL Red Blood Count 4.78 4.2-5.4 M/uL Hemoglobin 14.8 12.0-16.0 g/dL Hematocrit 43.1 37-47 % Mean Corpuscular Volume 90.2 80-100 fL Mean Corpuscular Hemoglobin 31.0 25-34 pg Mean Corpuscular Hemoglobin Concent 34.3 32-36 g/dl Platelet Count 240 130-400 K/uL Mean Platelet Volume 10.8 7.4-10.4 fL Neutrophils (%) (Auto) 77.5 % Lymphocytes (%) (Auto) 15.8 % Monocytes (%) (Auto) 5.5 % Eosinophils (%) (Auto) 0.8 % Basophils (%) (Auto) 0.2 % Neutrophils # (Auto) 13.90 1.4-6.5 K/uL Lymphocytes # (Auto) 2.83 1.2-3.4 K/uL Monocytes # (Auto) 0.98 0.11-0.59 K/uL Eosinophils # (Auto) 0.14 0-0.5 K/uL Basophils # (Auto) 0.04 0-0.2 K/uL RDW Standard Deviation 42.3 36.4-46.3 fL RDW Coefficient of Variation 12.9 11.5-14.5 % Immature Granulocyte % (Auto) 0.2 % Immature Granulocyte # (Auto) 0.04 0.00-0.02 K/uL Sodium Level 140 136-145 mmol/L Potassium Level 3.6 3.5-5.1 mmol/L Chloride Level 109 98-107 mmol/L Carbon Dioxide Level 23 21-32 mmol/L Anion Gap 9.0 3-11 mmol/L Blood Urea Nitrogen 8 7-18 mg/dl Creatinine 0.83 0.60-1.20 mg/dl Est Creatinine Clear Calc Drug Dose 122.1 ml/min Estimated GFR () 105.9 Estimated GFR (Non- 91.4 BUN/Creatinine Ratio 9.3 10-20 Random Glucose 92 70-99 mg/dl Calcium Level 8.7 8.5-10.1 mg/dl Total Bilirubin 0.8 0.2-1 mg/dl Aspartate Amino Transf (AST/SGOT) 13 15-37 U/L Alanine Aminotransferase (ALT/SGPT) 20 12-78 U/L Alkaline Phosphatase 65 45-117 U/L Total Protein 6.7 6.4-8.2 gm/dl Albumin 3.6 3.4-5.0 gm/dl Globulin 3.1 2.5-4.0 gm/dl Albumin/Globulin Ratio 1.1 0.9-2 Lipase 61 73-393 U/L Human Chorionic Gonadotropin, Qual NEG NEG Urine Color YELLOW Urine Appearance CLOUDY CLEAR Urine pH >= 9.0 4.5-7.5 Urine Specific [place] 1.020 1.000-1.030 Urine Protein NEG NEG Urine Glucose (UA) NEG NEG Urine Ketones NEG NEG Urine Occult Blood NEG NEG Urine Nitrite NEG NEG Urine Bilirubin NEG NEG Urine Urobilinogen NEG NEG Urine Leukocyte Esterase NEG NEG Urine WBC (Auto) 1-5 0-5 /hpf Urine RBC (Auto) 0-4 0-4 /hpf Urine Hyaline Casts (Auto) 1-5 0-5 /lpf Urine Epithelial Cells (Auto) >30 0-5 /lpf Urine Bacteria (Auto) 2+ NEG Microbiology Results 09/27/17 Urine Culture, Received Pending Diagnostic Radiology CT SCAN OF THE ABDOMEN AND PELVIS WITH IV CONTRAST CLINICAL HISTORY: Right lower quadrant abdominal pain. COMPARISON STUDY: Abdominal CT dated 06/05/2016. TECHNIQUE: Following the IV administration of 119 cc of Optiray 320, CT scan of the abdomen and pelvis is performed from the lung bases to the proximal femora. Images are reviewed in the axial, sagittal, and coronal planes. IV contrast was administered without complication. A dose lowering technique was utilized adhering to the principles of ALARA. CT DOSE: 537.72 mGy.cm FINDINGS: Lung bases: The heart is normal in size and without pericardial effusion. The lung bases are clear. Liver: The contrast-enhanced liver is normal in size, contour, and attenuation. There is no intrahepatic biliary ductal dilatation. The hepatic veins and portal veins are patent. Gallbladder: Unremarkable. Spleen: Normal in size and attenuation. Pancreas: Unremarkable. Adrenal glands: Unremarkable. Kidneys: The contrast enhanced kidneys are normal in size and without hydronephrosis. The kidneys enhance symmetrically. Abdominal vasculature: The abdominal aorta is normal in course and caliber. Bowel: There is no bowel obstruction. The appendix is distended and fluid-filled, measuring up to 1.4 cm in diameter as seen on image #310. The appendiceal wall is thickened and hyperemic and there is appendiceal inflammatory stranding. Findings are consistent acute appendicitis. No abscess is seen. Peritoneum: There is no intraperitoneal free air or abdominal ascites. Lymphadenopathy: None. Pelvic viscera: The bladder is normal as visualized. The uterus is normal in appearance noting an intrauterine device in place. The ovaries are normal as imaged. Trace free fluid is noted in the cul-de-sac. Skeletal structures: No lytic or blastic lesions are seen. IMPRESSION: 1. Findings are consistent with acute appendicitis. 2. There is no evidence of abscess or perforation. 3. Trace free fluid in the cul-de-sac is likely within physiologic limits. ABDOMEN 2VIEW W/PA CHEST RTN CLINICAL HISTORY: Abdominal pain COMPARISON STUDY: 01/05/2016 FINDINGS: The erect chest reveals no free air. There is no focal pulmonary consolidation. Erect and supine views the abdomen reveal an IUD. There is a borderline dilated left mid abdominal small bowel loop. There is no current evidence of significant bowel obstruction.. IMPRESSION: Nonspecific bowel gas pattern with a borderline dilated left mid abdominal small bowel loop. This could indicate a mild focal ileus. There is no current evidence of significant bowel obstruction. There is no free air. Impression Assessment and Plan 37 year old female with few day history of nausea and vomiting and 1 day history of severe mid abdominal pain that woke her up this morning with associated anorexia and chills. Leukocytosis of 17K. CT scan of abdomen and pelvis showing dilated appendix at 1.4 cm and periappendiceal inflammation consistent with acute appendicitis without perforation or abscess. Abdomen is soft, tender in the RLQ and right mid abdomen on mild palpation with guarding and rebound. No peritonitis. Plan: Plan to take patient to operating room for laparoscopic appendectomy possible open, patient informed of procedure and risks. Informed consent obtained. Given history of Factor V Leiden, will ensure patient is ambulating post op, SCDs and Lovenox for DVT prophylaxis post op Will be given IV clindamycin for pre-operatively She will go to medical/surgical floor postoperatively Dr. Gtz has seen and examined patient, agrees with above. Resuscitation Status VTE Prophylaxis Will order VTE Prophylaxis: Yes
--- NOTE | 2017-09-27 14:38 | History & Physical Bridge Note ---
H&P Re-Evaluation Bridge Note: I have examined the patient, reviewed the History & Physical and in the interval since the performance of the History & Physical I have noted the following changes of clinical significance: No changes noted
[2017-09-27] MEDS ORDERED: HYDROmorphone INJ 1 MG/ML SYR IV PRN (14:45)
[2017-09-27] MEDS ORDERED: OXYCODONE/ACETAMINOPHEN 5-325 TAB PO PRN (14:45)
[2017-09-27] MEDS ORDERED: ATROPINE SULFATE 0.1 MG/ML 5ML SYR IV PRN (14:45)
[2017-09-27] MEDS ORDERED: MIDAZOLAM HCL 1 MG/ML 2ML VIAL ONE (14:45)
[2017-09-27] MEDS ORDERED: ACETAMINOPHEN 325 MG TAB PO PRN (14:45)
[2017-09-27] MEDS ORDERED: MoRPHine SULFATE 2 MG/ML CARP IV PRN ×3 (14:45)
[2017-09-27] MEDS ORDERED: FENTANYL CITRATE INJ 50 MCG/1 ML 2 ML VIAL IV PRN (14:45)
[2017-09-27] MEDS ORDERED: EpHEDrine SULFATE INJ 50 MG/ML AMP IV PRN (14:45)
[2017-09-27] MEDS ORDERED: ONDANSETRON INJ 2 MG/ML 2 ML VIAL IV PRN ×2 (14:45)
[2017-09-27] MEDS ORDERED: FENTANYL CITRATE INJ 50 MCG/1 ML 2 ML VIAL ONE (14:45)
[2017-09-27] MEDS ORDERED: ALBUTEROL HFA INHALER 8.5 GM INH ONE (14:55)
[2017-09-27] MEDS ORDERED: BACITRACIN OINT 15 GM TUBE ONE (15:00)
[2017-09-27] MEDS ORDERED: CLINDAMYCIN IV 900 MG in DEXTROSE 5% 50ML 50 ML IV SCH (15:00)
[2017-09-27] MEDS ORDERED: LIDOCAINE HCL 1% 20 ML VIAL ONE (15:01)
[2017-09-27] MEDS ORDERED: BUPIVACAINE 0.5 % 5 MG/1 ML PF 10ML VIAL ONE (15:01)
[2017-09-27] MEDS ORDERED: DEXAMETHASONE SOD INJ 4 MG/ML VIAL ONE (15:15)
[2017-09-27] MEDS ORDERED: PROPOFOL IV EMULSION 10 MG/ML 20 ML VIAL ONE (15:28)
[2017-09-27] MEDS ORDERED: ONDANSETRON INJ 2 MG/ML 2 ML VIAL ONE (15:28)
[2017-09-27] MEDS ORDERED: LARYING-O-JET KIT (LTA) ONE (15:28)
[2017-09-27] MEDS ORDERED: ROCURONIUM BROMIDE 10 MG/ML 5 ML VIAL ONE (15:28)
[2017-09-27] MEDS ORDERED: LIDOCAINE HCL 2% 2 ML VIAL (20MG/ML) ONE (15:28)
[2017-09-27] MEDS ORDERED: GLYCOPYRROLATE INJ 0.2 MG/ML VIAL ONE (15:28)
[2017-09-27] MEDS ORDERED: NEOSTIGMINE METHYLSULFATE 5 MG/5 ML SYR ONE (15:28)
[2017-09-27] MEDS ORDERED: IV FLUIDS COMPLETED PRN (15:45)
--- NOTE | 2017-09-27 16:02 | [facility] Post Operative Brief Note ---
Immediate Operative Summary Operative Date Sep 27, 2017. Pre-Operative Diagnosis Acute Appendicitis Post-Operative Diagnosis Acute Appendicitis Procedure(s) Performed Laparoscopic Appendectomy Surgeon Dr Gtz Clinical Education Consultant Surgeon(s) Candido Arriola PA-C Estimated Blood Loss 10 ml Findings Consistent with Post-Op Diagnosis Fluids (cc crystalloids) 600ml Specimens A. Appendix Drains None Anesthesia Type General Complication(s) none Disposition Accompanied Pt To Recover: yes Disposition: Recovery Room / PACU
--- NOTE | 2017-09-27 17:07 | Anesthesiology Progress Note ---
Anesthesia Post Op Note Date & Time Sep 27, 2017 at 17:07 Vital Signs Pain Intensity: 4 Vital Signs Past 12 Hours Date Time Temp Pulse Resp B/P (MAP) Pulse Ox O2 Delivery O2 Flow Rate FiO2 09/27/17 17:05 59 18 124/80 100 Room Air 09/27/17 16:55 36.5 58 16 115/84 100 Room Air 09/27/17 16:45 61 16 102/87 100 Oxymask 10 09/27/17 16:35 61 18 122/95 100 Oxymask 10 09/27/17 16:26 36.1 68 17 120/85 100 Oxymask 10 09/27/17 14:49 36.8 70 16 126/77 (93) 100 Room Air 09/27/17 14:30 70 18 135/77 100 Room Air 09/27/17 12:30 82 16 114/75 98 Room Air 09/27/17 10:35 36.7 92 18 138/74 100 Room Air Notes Mental Status: alert / awake / arousable, participated in evaluation Pt Amnestic to Procedure: Yes Nausea / Vomiting: adequately controlled Pain: adequately controlled Airway Patency, RR, SpO2: stable & adequate BP & HR: stable & adequate Hydration State: stable & adequate Anesthetic Complications: no major complications apparent
[2017-09-27] MEDS ORDERED: NURSING VERBAL MED ORDER ONE (18:30)
[2017-09-27] MEDS: OXYCODONE/ACETAMINOPHEN 5-325 TAB PO PRN ×2 (18:53→20:39)
[2017-09-27] MEDS: SODIUM CHLORIDE 0.9% 1000ML 1,000 ML IV SCH ×2 (19:06→23:29)
[2017-09-27] MEDS: NICOTINE 21 MG/24 HR TDSY TD SCH (19:45)
--- NOTE | 2017-09-27 22:58 | OPERATIVE REPORT ---
DATE OF OPERATION: 09/27/2017 PREOPERATIVE DIAGNOSIS: Acute appendicitis. POSTOPERATIVE DIAGNOSIS: Same. OPERATION: Laparoscopic appendectomy. SURGEON: Ann Gtz MD ANESTHESIA: General. ESTIMATED BLOOD LOSS: About 10 mL. FINDINGS: Acute appendicitis. COMPLICATIONS: None. INDICATIONS FOR THE PROCEDURE: This is a 37-year-old female who presented to the ED with right lower quadrant pain and the patient had a CT scan diagnosis of acute appendicitis. I saw the patient at the ED and decided to take the patient to the OR to do laparoscopic appendectomy, possible open. I did talk to the patient about the benefits, risks, and alternatives to procedure. I indicated the risks may include, but not limited such as bleeding, infection, abscess, injury to bowel, DVT. The patient understood and she signed the informed consent. She agreed to proceed with the procedure. I answered all questions. DETAILS OF PROCEDURE: We brought the patient to the OR, put the patient on the supine position. The patient received SCD on bilateral legs to prevent DVT. Also, the patient received 900 mg clindamycin IV for prophylactic antibiotic. The patient received general anesthesia without difficulty. Also, patient received Khan catheter insertion. The abdomen was appropriately draped in routine sterile fashion. After time-out, I injected the local anesthesia by using 1% lidocaine mixed with 0.5% Marcaine just above umbilicus, then made a small incision just above umbilicus, opened fascia, opened peritoneum under direct vision, put a Yvette trocar in, connected to CO2 to create pneumoperitoneum. Flow rate is 6 liter per minute, pressure not more than 14 mmHg. Once we got a nice pneumoperitoneum, we put the camera in, looked around the abdomen, showed normal finding on the liver, stomach, small bowel, large bowel; however, the appendix showed a significant inflammation and enlarged, confirmed diagnosis of acute appendicitis, and also there was minimal free fluid on the pelvic area, it was clear. At this moment, we put another two 5 mm trocars on the left lower quadrant area. Then we used a grasper to hold the appendix, made a window on the appendix, then used a 45 mm Endo-YANET stapler for transection on the base of the appendix. We checked the staple line, intact and no leak, no active bleeding. Then I used a harmonic to take down the appendiceal, rechecked, no active bleeding, and then we removed appendix through the catch bag. Then we reinserted Yvette trocar in, connected to CO2 to create pneumoperitoneum again, looked around the abdomen, no active bleeding, no leak from the staple line. Then we removed all trocar under direct vision. No active bleeding from trocar sites. The pneumoperitoneum was released. Then I closed the umbilical incision, fascial layer by using #1 Vicryl [id number] x2, closed subcutaneous layer by using 2-0 Vicryl interrupted, closed skin by using 4-0 Vicryl continuous running, closed another two 5 mm trocar sites skin only by using 4-0 Vicryl. We put the dressing on and removed Khan catheter. The patient tolerated the procedure well. All the instrument, needle, and sponge counts were correct x2 at the end of the case and the patient transferred to recovery room in stable condition. After the procedure, I did talk to patient's parents about the OR findings and the procedure we did, they understood. I attest to the content of the Intraoperative Record and any orders documented therein. Any exceptions are noted below. LBANCA
[2017-09-28 03:00] VITALS: BP 108/71; PULSE 67; TEMP 36.5; O2SAT 98
[2017-09-28 06:02] LABS: BASO % 0.1 %; BASO ABS # 0.01 K/uL (0-0.2); HEMATOCRIT 38.8 % (37-47); HEMOGLOBIN 13.1 g/dL (12.0-16.0); IG# 0.05 K/uL (0.00-0.02); LYMPH ABS # 2.24 K/uL (1.2-3.4); MEAN CELL VOLUME 91.5 fL (80-100); MEAN CORPUSCULAR HEMOGLOBIN 30.9 pg (25-34); MEAN CORPUSCULAR HGB CONC 33.8 g/dl (32-36); MEAN PLATELET VOLUME 11.4 fL (7.4-10.4); MONO % 4.6 %; MONO ABS # 0.73 K/uL (0.11-0.59); NEUT ABS # 12.93 K/uL (1.4-6.5); PLATELET COUNT 224 K/uL (130-400); RED CELL DISTRIBUTION WIDTH CV 13.1 % (11.5-14.5); RED CELL DISTRIBUTION WIDTH SD 43.8 fL (36.4-46.3); WHITE BLOOD COUNT 15.96 K/uL (4.8-10.8)
[2017-09-28] MEDS: SODIUM CHLORIDE 0.9% 1000ML 1,000 ML IV SCH (07:52)
[2017-09-28 08:15] VITALS: BP 128/93; PULSE 68; TEMP 36.7; O2SAT 99
--- NOTE | 2017-09-28 08:24 | Discharge Instructions ---
Discharge Instructions Date of Service Sep 28, 2017. Admission Reason for Admission: Acute Appendicitis Discharge Discharge Diagnosis / Problem: same Discharge Goals Goal(s): Decrease discomfort, Improve function Activity Recommendations Activity Limitations: per Instructions/Follow-up section No heavy lifting over 10-20 pounds for 3-4 weeks No strenuous activity until cleared by surgeon No submerging incisions underwater for 2 weeks (no bathing, swimming, or hot tubs) No driving while taking narcotic pain medication or until you are pain free . Instructions / Follow-Up Instructions / Follow-Up You may shower in 3 days, sponge bath and wash hair in meantime. After 3 days, remove outer dressings and then shower. Leave steri strips on incisions for 7 days and then remove. They may fall off on their own that is okay. Walking and light activity is encouraged to prevent blood clots from forming in your legs You will be given prescription for narcotic pain medication to take as needed for moderate to severe pain. Take as directed. This medication may cause drowsiness and constipation. To combat constipation: -Drink plenty of fluids daily, avoid foods that constipate, daily walking, may take OTC stool softener such as Colace and mineral oil if needed - If above measures do not work you can try milk of magnesia or Miralax You may take extra strength Ibuprofen/Tylenol as needed for mild pain. Follow-up in surgical office in 1-2 weeks , please call office at [phone] to make an appointment Current Hospital Diet Patient's current hospital diet: Full Liquid Diet Discharge Diet Recommended Diet: Regular Diet Procedures Procedures Performed: Laparoscopic Appendectomy Pending Studies Studies pending at discharge: yes List of pending studies: Appendix pathology, will be reviewed at follow up visit Medical Emergencies . Who to Call and When: Medical Emergencies: If at any time you feel your situation is an emergency, please call 911 immediately. . Non-Emergent Contact Non-Emergency issues call your: Primary Care Provider, Surgeon Call Non-Emergent contact if: you have a fever, temperature is above 101, your pain is not controlled, your pain is worsening, your pain is unusual for you, wound has increased drainage, wound has increased redness, wound has increased pain . "Provider Documentation" section prepared by Raegan Arriola. . [place] Drug Monitoring Program Search Results: patient reviewed within database, no issues identified
[2017-09-28] MEDS: NICOTINE 21 MG/24 HR TDSY TD SCH (08:44)
[2017-09-28] MEDS ORDERED: ENOXAPARIN 40 MG/0.4 ML SYR SQ SCH (09:00)
[2017-09-28] MEDS ORDERED: OXYC-57 PO (09:13)
--- NOTE | 2017-09-28 09:18 | Surgery Progress Note ---
Surgery Progress Note Date of Service Sep 28, 2017. Subjective Post OP Day: 1 (s/p laparoscopic appendectomy) + feeling well (preoperative pain has resolved, no just sore at incision sites) , + chest pain (left upper into shoulder, resolved on its own , most likely the gas escaping), + ambulating, + pain controlled, + diet (clear liquids), No complaints, No bowel movement, No nausea, No vomiting Objective Vital Signs: Date Time Temp Pulse Resp B/P (MAP) Pulse Ox O2 Delivery O2 Flow Rate FiO2 09/28/17 08:15 36.7 68 18 128/93 (105) 99 Room Air 09/28/17 07:40 Room Air 09/28/17 03:00 36.5 67 18 108/71 (83) 98 Room Air 09/27/17 23:35 Room Air 09/27/17 23:13 36.6 68 18 112/73 (86) 97 Room Air 09/27/17 19:25 36.9 72 18 123/70 (87) 95 09/27/17 18:28 98 Room Air 09/27/17 18:22 37.0 69 18 110/70 (83) 97 09/27/17 18:03 36.8 62 16 115/77 (90) 100 Room Air 09/27/17 17:35 100 Room Air 09/27/17 17:20 36.2 60 16 84/57 (66) 99 Room Air 09/27/17 17:20 99 Room Air 09/27/17 17:05 59 18 124/80 100 Room Air 09/27/17 16:55 36.5 58 16 115/84 100 Room Air 09/27/17 16:45 61 16 102/87 100 Oxymask 10 09/27/17 16:35 61 18 122/95 100 Oxymask 10 09/27/17 16:26 36.1 68 17 120/85 100 Oxymask 10 09/27/17 14:49 36.8 70 16 126/77 (93) 100 Room Air 09/27/17 14:30 70 18 135/77 100 Room Air 09/27/17 12:30 82 16 114/75 98 Room Air 09/27/17 10:35 36.7 92 18 138/74 100 Room Air General Appearance: WD/WN, no apparent distress Head: normocephalic, atraumatic Neck: trachea midline Respiratory/Chest: no respiratory distress, no accessory muscle use Abdomen: non distended, soft, no organomegaly, no pulsatile mass, + tenderness (RLQ on deep palpation and at incision sites, appropriate) Incision(s): clean, dry, intact (dressings, incisions not inspected, no surrounding erythema or edema) Laboratory Results: Results Past 24 Hours Test 09/27/17 10:55 09/27/17 12:40 09/27/17 16:38 09/28/17 05:15 Range/Units White Blood Count 17.93 15.96 4.8-10.8 K/uL Red Blood Count 4.78 4.24 4.2-5.4 M/uL Hemoglobin 14.8 13.1 12.0-16.0 g/dL Hematocrit 43.1 38.8 37-47 % Mean Corpuscular Volume 90.2 91.5 80-100 fL Mean Corpuscular Hemoglobin 31.0 30.9 25-34 pg Mean Corpuscular Hemoglobin Concent 34.3 33.8 32-36 g/dl Platelet Count 240 224 130-400 K/uL Mean Platelet Volume 10.8 11.4 7.4-10.4 fL Neutrophils (%) (Auto) 77.5 81.0 % Lymphocytes (%) (Auto) 15.8 14.0 % Monocytes (%) (Auto) 5.5 4.6 % Eosinophils (%) (Auto) 0.8 0.0 % Basophils (%) (Auto) 0.2 0.1 % Neutrophils # (Auto) 13.90 12.93 1.4-6.5 K/uL Lymphocytes # (Auto) 2.83 2.24 1.2-3.4 K/uL Monocytes # (Auto) 0.98 0.73 0.11-0.59 K/uL Eosinophils # (Auto) 0.14 0.00 0-0.5 K/uL Basophils # (Auto) 0.04 0.01 0-0.2 K/uL RDW Standard Deviation 42.3 43.8 36.4-46.3 fL RDW Coefficient of Variation 12.9 13.1 11.5-14.5 % Immature Granulocyte % (Auto) 0.2 0.3 % Immature Granulocyte # (Auto) 0.04 0.05 0.00-0.02 K/uL Prothrombin Time 10.7 9.0-12.0 SECONDS Prothromb Time International Ratio 1.0 0.9-1.1 Sodium Level 140 136-145 mmol/L Potassium Level 3.6 3.5-5.1 mmol/L Chloride Level 109 98-107 mmol/L Carbon Dioxide Level 23 21-32 mmol/L Anion Gap 9.0 3-11 mmol/L Blood Urea Nitrogen 8 7-18 mg/dl Creatinine 0.83 0.60-1.20 mg/dl Est Creatinine Clear Calc Drug Dose 122.1 ml/min Estimated GFR () 105.9 Estimated GFR (Non- 91.4 BUN/Creatinine Ratio 9.3 10-20 Random Glucose 92 70-99 mg/dl Calcium Level 8.7 8.5-10.1 mg/dl Total Bilirubin 0.8 0.2-1 mg/dl Aspartate Amino Transf (AST/SGOT) 13 15-37 U/L Alanine Aminotransferase (ALT/SGPT) 20 12-78 U/L Alkaline Phosphatase 65 45-117 U/L Total Protein 6.7 6.4-8.2 gm/dl Albumin 3.6 3.4-5.0 gm/dl Globulin 3.1 2.5-4.0 gm/dl Albumin/Globulin Ratio 1.1 0.9-2 Lipase 61 73-393 U/L Human Chorionic Gonadotropin, Qual NEG NEG Urine Color YELLOW Urine Appearance CLOUDY CLEAR Urine pH >= 9.0 4.5-7.5 Urine Specific [place] 1.020 1.000-1.030 Urine Protein NEG NEG Urine Glucose (UA) NEG NEG Urine Ketones NEG NEG Urine Occult Blood NEG NEG Urine Nitrite NEG NEG Urine Bilirubin NEG NEG Urine Urobilinogen NEG NEG Urine Leukocyte Esterase NEG NEG Urine WBC (Auto) 1-5 0-5 /hpf Urine RBC (Auto) 0-4 0-4 /hpf Urine Hyaline Casts (Auto) 1-5 0-5 /lpf Urine Epithelial Cells (Auto) >30 0-5 /lpf Urine Bacteria (Auto) 2+ NEG Bedside Glucose 82 70-90 mg/dl Microbiology Results 09/27/17 Urine Culture - Final, Complete MORE THAN THREE TYPES OF ORGANISMS IA... Assessment & Plan POD # 1 s/p lap appy -vitals stable, afebrile - preop pain resolved, sore at incisions, pain controlled - no nausea or vomiting - adequate urine output Plan: Discharge home today Discharge instructions reviewed F/u surgical office 1-2 weeks Rx for Percocet prn pain Discussed with Dr. Gtz who agrees with above
[2017-09-28 09:41] VITALS: BP 128/93; PULSE 68; TEMP 36.7; O2SAT 99
--- NOTE | 2017-09-29 07:58 | Discharge Summary ---
Discharge Summary Dates Admission Date / Time: Sep 27, 2017 at 17:37 Discharge Date: Sep 28, 2017 Dispostion / Condition Discharge Disposition: Home Condition at Discharge: Good Principal Diagnosis (1) Acute appendicitis Problem List (1) Factor 5 Leiden mutation, heterozygous (2) Asthma Consultations / Procedures Consultations: None Procedures: Laparoscopic Appendectomy Vaccinations: None Pending Studies / Follow-Up Appendix Pathology, will be reviewed at follow-up visit Medication Reconciliation New Medications: Oxycodone/Acetaminophen 5MG/325MG (Percocet 5MG/325MG) Tab 1 TABLET PO Q4H PRN for Pain, #18 TAB Continued Medications: Acetaminophen (Tylenol) 500 Mg Tab 1000 MG PO Q6 PRN for Pain, TAB Albuterol Hfa (Ventolin Hfa) 200 Puffs/24152 Mcg Aers 2 PUFFS INH QID PRN for SOB/Wheezing, #1 INHALER Ibuprofen (Advil) 200 Mg Tab 400 MG PO Q6 PRN for Pain, TAB Admission HPI Per the Admitting provider: Kristi is a 37 year-old female with history of asthma and factor V Leiden deficiency who presented to emergency room this morning with complaint of severe abdominal pain , mid abdomen just above umbilicus with prominence on the right side with associated nausea and low appetite over the weekend. She states she had nausea and some vomiting over the weekend and then felt slightly better yesterday in which she was able to go to work but still did not feel completely better. States she woke up this morning with severe abdominal pain, the worst pain she has ever had and thought maybe she was having a kidney infection. Associated chills today, no known fever or sweats. Denies chest pain, shortness of breath, difficulty breathing, change in bowel habits, diarrhea, blood in stools, or black/tarry stools. She has history of a DVT in her upper extremity following IV placement. Also had miscarriage in which she was told may have been due to her Factor V Leiden deficiency. No history of pulmonary embolism. She was put on Lovenox after Upper extremity DVT and then warfarin an was placed on Lovenox throughout her . 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 ER work-up included labs which showed leukocytosis of 17K. CT scan of abdomen and pelvis showing dilated appendix at 1.4 cm with periappendiceal inflammation but no evidence of perforation or abscess. She was given Morphine which has helped her pain significantly. She states before she was unable to get into a comfortable position. Admission Exam Per the Admitting provider: General Appearance: WD/WN, no apparent distress Head: normocephalic, atraumatic Eyes: sclerae normal ENT: hearing grossly normal Neck: trachea midline Respiratory/Chest: lungs clear, normal breath sounds, no respiratory distress, no accessory muscle use Cardiovascular: regular rate, rhythm, no murmur Abdomen/GI: soft, no organomegaly, no pulsatile mass, + tenderness (RLQ and mid right abdomen on mild palpation with guarding an rebound, no peritonitis) Neurologic/Psych: alert, normal mood/affect, oriented x 3 Skin: normal color, warm/dry, no rash Hospital Course (1) Acute appendicitis Patient was taken to operating room for laparoscopic appendectomy possible open by Dr. Gtz and myself. Patient was found to have acute appendicitis without perforation or abscess. Patient tolerated procedure well without any difficulties. Patient was transferred to recovery and then to medical/surgical floor for postoperative care. IV fluids were continued, PO Percocet with breakthrough IV Morphine as needed for pain, IV Zofran prn nausea, clear liquid diet and advanced as tolerated, activity as tolerated, SCDs and Lovenox for DVT prophylaxis given Factor V Leiden mutation, and repeat CBC in am. Patient was evaluated on the morning of POD # 1. CBC showed leukocytosis of 15K but improved, afebrile overnight and vitals stable. Her preoperative pain had resolved and pain controlled with oral pain medication. No nausea or vomiting. Urinating and ambulating without difficulty. Patient was discharged home on POD # 1 in stable condition. Overall hospital course was uneventful. Discharge Instructions as given to patient Copies To Primary Care Provider: Martin Rizzo M.D..
== END 2017-09-28 10:25 | disposition home or self-care (01) ==
LOC: C.EDB 10:32 → ENRESERV 15:34 → C.MSN 17:37
PROVIDERS: ADMIT Surgery; ATTEND Surgery
DX: K35.80 Unspecified acute appendicitis (principal); D68.51 Activated protein C resistance; J45.909 Unspecified asthma, uncomplicated; E66.9 Obesity, unspecified; Z86.718 Personal history of other venous thrombosis and embolism; F17.200 Nicotine dependence, unspecified, uncomplicated; Z88.1 Allergy status to other antibiotic agents; Z88.0 Allergy status to penicillin; Z88.2 Allergy status to sulfonamides